=== PATIENT | female | born 1975 | race Caucasian/White ===

== ENCOUNTER 2018-05-15 05:55 | Inpatient (IN) | payer OTHER ==
[2018-05-15] MEDS ORDERED: LACTATED RINGER'S 1,000 ML IV* (06:00)
[2018-05-15] MEDS ORDERED: DESFLURANE 15 MIN (07:00)
[2018-05-15] MEDS ORDERED: HYDROmorphONE 1 MG/5 ML IV SYRINGE IV (07:30)
[2018-05-15] MEDS ORDERED: DIPHENHYDRAMINE 50 MG INJ IV (07:30)
[2018-05-15 07:31] LABS: ADD MAN DIFF? NO
[2018-05-15] MEDS ORDERED: PROPOFOL 20 ML (07:32)
[2018-05-15] MEDS ORDERED: METOCLOPRAMIDE 10 MG INJ (07:32)
[2018-05-15] MEDS ORDERED: MIDAZOLAM 1 MG/ML 2 ML INJ (07:32)
[2018-05-15] MEDS ORDERED: ONDANSETRON 4 MG INJ (07:32)
[2018-05-15] MEDS ORDERED: morphine SULFATE/PF (10 MG/10 ML) INJ (07:33)
[2018-05-15] MEDS ORDERED: BUPIVACAINE 0.75%/DEXT (SPINAL) 2 ML INJ (07:33)
[2018-05-15 07:34] LABS: BASOPHILS % 0.5 % (0.0-2.0); EOSINOPHILS # 0.1 10^3/ul (0.0-0.5); EOSINOPHILS % 0.8 % (0.0-7.0); HEMATOCRIT 45.5 % (37.0-47.0); HEMOGLOBIN 15.6 g/dl (12.0-16.0); LYMPHOCYTES # 1.5 10^3/ul (0.8-2.9); LYMPHOCYTES % 20.3 % (15.0-51.0); MEAN CORPUSCULAR HEMOGLOBIN 30.8 pg (29.0-33.0); MEAN CORPUSCULAR HGB CONC 34.3 g/dl (32.0-37.0); MEAN CORPUSCULAR VOLUME 89.7 fl (82.0-101.0); MEAN PLATELET VOLUME 9.9 fl (7.4-10.4); MONOCYTE # 0.4 10^3/ul (0.3-0.9); MONOCYTES % 5.3 % (0.0-11.0); NEUTROPHIL # 5.5 10^3/ul (1.6-7.5); PLATELET COUNT 378 10^3/UL (140-415); RED BLOOD COUNT 5.07 10^6/ul (4.20-5.40); RED CELL DISTRIBUTION WIDTH 12.7 % (11.5-14.5)
[2018-05-15 07:34] LABS: WHITE BLOOD COUNT 7.5 10^3/ul (4.8-10.8)
[2018-05-15] MEDS: CEFAZOLIN 2 GM/50 ML (PMX) 50 ML IVPB ×3 (07:50→21:07)
[2018-05-15] MEDS ORDERED: ACETAMINOPHEN 1000MG/100ML IV 100 ML (07:55)
[2018-05-15] MEDS ORDERED: KETOROLAC 30 MG INJ (07:55)
[2018-05-15] MEDS ORDERED: CEFAZOLIN 1 GM INJ (07:55)
[2018-05-15] MEDS ORDERED: morphine 4 MG/ML VIAL IV (08:00)
[2018-05-15] MEDS ORDERED: ESMOLOL 10 ML (09:03)
[2018-05-15] MEDS: HYDROmorphONE 1 MG/5 ML IV SYRINGE IV ×3 (10:01→10:45)
[2018-05-15] MEDS: MEPERIDINE 25 MG INJ IV (10:25)
[2018-05-15] MEDS: HYDROCODONE/APAP (5/325) TAB PO (10:25)
[2018-05-15] MEDS: ONDANSETRON 4 MG INJ IV (10:34)
[2018-05-16] MEDS: HYDROCODONE/APAP (5/325) TAB PO ×3 (00:58→12:56)
[2018-05-16] MEDS: CEFAZOLIN 2 GM/50 ML (PMX) 50 ML IVPB (05:53)
[2018-05-16 06:30] LABS: ADD MAN DIFF? NO
[2018-05-16 06:32] LABS: BASOPHILS % 0.2 % (0.0-2.0); EOSINOPHILS % 0.1 % (0.0-7.0); HEMOGLOBIN 11.3 g/dl (12.0-16.0); LYMPHOCYTES # 1.7 10^3/ul (0.8-2.9); LYMPHOCYTES % 17.5 % (15.0-51.0); MEAN CORPUSCULAR HEMOGLOBIN 31.1 pg (29.0-33.0); MEAN CORPUSCULAR HGB CONC 33.2 g/dl (32.0-37.0); MEAN CORPUSCULAR VOLUME 93.7 fl (82.0-101.0); MONOCYTE # 0.8 10^3/ul (0.3-0.9); MONOCYTES % 7.9 % (0.0-11.0); NEUTROPHIL # 7.3 10^3/ul (1.6-7.5); PLATELET COUNT 376 10^3/UL (140-415); RED BLOOD COUNT 3.63 10^6/ul (4.20-5.40); RED CELL DISTRIBUTION WIDTH 12.8 % (11.5-14.5)
[2018-05-16 06:32] LABS: WHITE BLOOD COUNT 9.9 10^3/ul (4.8-10.8)
[2018-05-16 07:13] LABS: ANION GAP 11 (8-16); BLOOD UREA NITROGEN 8 mg/dl (7-20); CALCIUM 8.4 mg/dl (8.4-10.2); CARBON DIOXIDE 28 mmol/L (21-31); CHLORIDE 102 mmol/L (97-110); CREATININE 0.55 mg/dl (0.44-1.00); GLUCOSE 120 mg/dl (70-220); POTASSIUM 4.2 mmol/L (3.5-5.1); SODIUM 137 mmol/L (135-144)
[2018-05-16] MEDS: ENOXAPARIN 40 MG/0.4 ML SYG SC (09:51)
[2018-05-16] MEDS: IBUPROFEN 600 MG TAB PO ×2 (10:36→16:32)
[2018-05-16] MEDS: FLU VACCINE 30 MCG/0.25 ML PF SYG (QS 2018 6-35 MOS) IM* (10:47)
[2018-05-16] MEDS: ONDANSETRON 4 MG INJ IV (12:52)
[2018-05-16] MEDS ORDERED: METOCLOPRAMIDE 10 MG INJ IV (13:00)
[2018-05-17] MEDS: HYDROCODONE/APAP (5/325) TAB PO (00:53)
[2018-05-17] MEDS: IBUPROFEN 600 MG TAB PO ×2 (06:54→15:55)
[2018-05-17] MEDS: ENOXAPARIN 40 MG/0.4 ML SYG SC (09:04)
== END 2018-05-17 20:05 | disposition home or self-care (01) | DRG 743 ==
LOC: REC 05:55 → 2NE 11:20
PROVIDERS: Specialist
PROC: 0UT90ZZ Resection of Uterus, Open Approach (ICD-10-PCS; principal; 2018-05-15 07:30)
PROC: 0UT70ZZ Resection of Bilateral Fallopian Tubes, Open Approach (ICD-10-PCS; 2018-05-15 07:30)
PROC: 0UB10ZZ Excision of Left Ovary, Open Approach (ICD-10-PCS; 2018-05-15 07:30)
DX: D25.1 Intramural leiomyoma of uterus (principal); N83.202 Unspecified ovarian cyst, left side; N92.0 Excessive and frequent menstruation with regular cycle
CPT/HCPCS: 80048; 82962; 84703; 85025; 86850; 86900; 86901; 87086; 88305; 90685; 93005